=== PATIENT | male | born 2000 | race Caucasian/White ===

== ENCOUNTER 2023-06-20 23:26 | Inpatient (IN) | payer BC ==
[2023-06-20] MEDS ORDERED: Morphine 4 MG/ML VIAL ONE (23:55)
[2023-06-20] MEDS ORDERED: Mag-Al 1200 mg/1200 mg/30 ML UDCUP ONE (23:56)
[2023-06-20] MEDS ORDERED: Famotidine 20 MG TAB ONE (23:56)
[2023-06-20] MEDS ORDERED: Ondansetron PF 4 MG/2 ML Vial ONE (23:56)
[2023-06-20] MEDS ORDERED: Famotidine/PF 20 mg/2ml Vial ONE (23:56)
[2023-06-21 00:17] LABS: #Monocytes 0.8 thou/uL (0.11-0.59); #Neutrophils 12.3 thou/uL (1.40-6.50); %Basophils 0.2 % (0.0-1.0); %Eosinophils 0.3 % (0.0-10.0); %Lymphocytes 4.2 % (21.0-51.0); %Monocytes 6.1 % (0.0-10.0); %Neutrophils 88.8 % (42.0-75.0); Hemoglobin 18.4 g/dL (14.0-18.0); Mean Corpuscular HGB CONC 34.7 g/dL (32.0-36.0); Mean Corpuscular Volume 89.4 fl (78.0-98.0); Mean Platelet Volume 9.3 fL (7.4-10.4); Platelet Count 234 10x3/uL (130-400); RBC Distribution Width 11.8 % (11.5-14.5); Red Blood Cell (RBC) Count 5.93 mill/uL (4.70-6.10); White Blood Cell (WBC) Count 13.8 10x3/uL (4.8-10.8)
[2023-06-21 00:43] LABS: ALT (SGPT) 32 U/L (8-55); AST (SGOT) 24 U/L (5-34); Albumin 5.4 g/dL (3.5-5.0); Alkaline Phosphatase 48 U/L (40-110); Anion Gap 18 mmol/L (10-20); BUN (Urea Nitrogen) 14 mg/dL (8.9-20.6); Bilirubin, Total 0.7 mg/dL (0.2-1.2); Calc. Creatinine Clearance 0 mL/min (70-130); Calcium 10.4 mg/dL (7.8-10.44); Carbon Dioxide 27 mmol/L (22-29); Chloride 100 mmol/L (98-107); Estimated GFR 94; Globulin 3.4 g/dL (2.4-3.5); Glucose 105 mg/dL (70-105); Lipase 14 U/L (8-78); Potassium 4.6 mmol/L (3.5-5.1); Protein, Total 8.8 g/dL (6.0-8.3); Sodium 140 mmol/L (136-145)
[2023-06-21] MEDS ORDERED: Morphine 4 MG/ML VIAL ONE (01:31)
[2023-06-21] MEDS ORDERED: Metoclopramide HCl 10 MG/2 ML VIAL ONE (01:55)
[2023-06-21] MEDS ORDERED: Acetaminophen 500 MG TAB ONE (03:56)
[2023-06-21 04:47] LABS: Bacteria/HPF None Seen HPF (None Seen); Bilirubin Negative (Negative); Blood, Urine Negative (Negative); CAUTI Indications for Culture Fever or rigors; Clarity Clear (Clear); Glucose, Urine (Dipstick) Normal (Negative); Ketone, Urine 10 mg/dL (Negative); Leukocyte Negative Leu/uL (Negative); Nitrite Negative (Negative); Protein, Urine (Dipstick) Negative (Neg-Trace); RBC/HPF 0-3 HPF (0-3); Squamous Epithelial None Seen HPF (0-3); Urobilinogen Normal mg/dL (Less than 2); WBC/HPF 0-3 HPF (0-3)
[2023-06-21 04:54] LABS: Specific Gravity, Urine 1.049 (1.002-1.036)
[2023-06-21 04:55] LABS: Urine Culture Reflex No No
[2023-06-21] MEDS ORDERED: cefTRIAXone (ROCEPHIN) 1 GM VIAL ONE (05:04)
[2023-06-21] MEDS ORDERED: Sodium Chloride 0.9% 1,000 ML IV SCH ×3 (06:15→17:15)
[2023-06-21] MEDS ORDERED: Acetaminophen 325 MG TAB PO PRN (07:11)
[2023-06-21] MEDS ORDERED: Ondansetron PF 4 MG/2 ML Vial IVP PRN (07:11)
[2023-06-21] MEDS ORDERED: Ondansetron ODT 4 MG TAB PO PRN (07:11)
[2023-06-21] MEDS ORDERED: Vancomycin 1 GM/200 ML (FROZEN) BAG ONE ×2 (07:14→21:07)
[2023-06-21 07:34] VITALS: BMI 20.2
[2023-06-21 07:55] LABS: SARS-CoV-2 NAA Rapid Test Not Detected (NotDetected)
[2023-06-21] MEDS ORDERED: Piperacillin/Tazobactam 3.375 GM in Sodium Chloride 0.9% 100 ML IVPB SCH ×2 (08:00→12:00)
[2023-06-21] MEDS ORDERED: Piperacillin/Tazobactam 3.375 GM VIAL ONE ×2 (08:28→12:35)
[2023-06-21] MEDS ORDERED: Sodium Chloride 0.9% 100 ML ONE ×2 (08:28→12:27)
[2023-06-21] MEDS ORDERED: Iopamidol 370 76% 100 ML VIAL ONE (08:49)
[2023-06-21] MEDS: Sodium Chloride 0.9% 1,000 ML IV SCH ×3 (09:46→22:39)
[2023-06-21] MEDS ORDERED: Pantoprazole 40 MG VIAL ONE (09:48)
[2023-06-21] MEDS: Pantoprazole 40 MG VIAL IVP SCH (09:54)
[2023-06-21 10:47] LABS: Hemoglobin A1c 5.1 % (4.0-6.0)
[2023-06-21 11:46] LABS: HIV (1/2) Antibody/Antigen Non-Reactive (NonReactive); HIV 1/2 INDEX 0.11 S/CO (<1.00)
[2023-06-21 11:49] LABS: HBCM Index 0.07 S/CO (0-0.79); HBSAg Index 0.41 S/CO (0-0.99); Hep A IgM AB Non-Reactive S/CO (NonReactive); Hep A IgM S/CO 0.16 S/CO (0-0.79); Hep B Surf Ag Non-Reactive S/CO (NonReactive); Hep C IgG Ab Non-Reactive S/CO (NonReactive); Hep C Index 0.08 S/CO (0-0.79); Hepatitis B Core IgM Abs Non-Reactive S/CO (NonReactive); Thyroid Stimulating Hormone 0.4893 uIU/mL (0.35-4.94)
[2023-06-21] MEDS ORDERED: Piperacillin/Tazobactam 4.5 GM VIAL ONE (12:27)
[2023-06-21 14:56] LABS: Mean Corpuscular HGB CONC 34.5 g/dL (32.0-36.0); Mean Corpuscular Hemoglobin 31.2 pg (27.0-31.0); Mean Corpuscular Volume 90.4 fl (78.0-98.0); Mean Platelet Volume 9.7 fL (7.4-10.4); Platelet Count 163 10x3/uL (130-400); RBC Distribution Width 11.9 % (11.5-14.5); Red Blood Cell (RBC) Count 4.29 mill/uL (4.70-6.10); White Blood Cell (WBC) Count 5.4 10x3/uL (4.8-10.8)
[2023-06-21 14:57] LABS: Hemoglobin 13.4 g/dL (14.0-18.0)
[2023-06-21 14:58] LABS: Hematocrit 38.8 % (42.0-52.0)
[2023-06-21] MEDS ORDERED: Meropenem 1 GM in Sodium Chloride 0.9% 100 ML IVPB SCH (15:00)
[2023-06-21 15:06] LABS: INR-International Normal Ratio 1.3; Prothrombin Time 16.5 sec (12.0-14.7)
[2023-06-21 15:07] LABS: PTT 33.5 sec (22.9-36.1)
[2023-06-21 15:13] LABS: Actual Bicarbonate (HCO3v) 22.5 mEq/L (22-28); Calcium, Ionized (venous) 1.12 mmol/L (1.16-1.32); Chloride (VBG) 105 mmol/L (98-106); Hematocrit-VBG 43 % (42.0-52.0); Hemoglobin (Hb) 14.6 g/dL (13.2-17.3); Potassium (VBG) 3.74 mmol/L (3.70-5.30); Sodium 137.8 mmol/L (133-146); pH (venous) 7.346 (7.32-7.43)
[2023-06-21 15:27] LABS: Anion Gap 11 mmol/L (10-20); BUN (Urea Nitrogen) 10 mg/dL (8.9-20.6); Calc. Creatinine Clearance 116 mL/min (70-130); Calcium 8.2 mg/dL (7.8-10.44); Carbon Dioxide 24 mmol/L (22-29); Chloride 106 mmol/L (98-107); Estimated GFR 121; Glucose 103 mg/dL (70-105); Magnesium 1.6 mg/dL (1.6-2.6); Potassium 3.6 mmol/L (3.5-5.1); Sodium 137 mmol/L (136-145)
[2023-06-21] MEDS ORDERED: cefTRIAXone\\ROCEPHIN 1 GM in Sodium Chloride 0.9% 100 ML IVPB SCH (17:00)
[2023-06-21] MEDS ORDERED: Hydrocortisone Sod Succ/PF 100 mg/2 ml Vial ONE (17:13)
[2023-06-21] MEDS ORDERED: Hydrocortisone Sod Succ/PF 100 mg/2 ml Vial IVP SCH (17:15)
[2023-06-21] MEDS ORDERED: NOREPINEPHRINE 8 MG/250 ML-D5W 250 ML IVPB SCH (17:15)
[2023-06-21] MEDS ORDERED: Acetaminophen 325 MG TAB ONE (18:48)
[2023-06-21] MEDS ORDERED: NOREPINEPHRINE 8 MG/250 ML-D5W 250 ML ONE (18:54)
[2023-06-21] MEDS ORDERED: Simethicone Chewable 80 MG TAB PO PRN (20:34)
[2023-06-21] MEDS ORDERED: Metoclopramide HCl 10 MG/2 ML VIAL IVP SCH (20:45)
[2023-06-21] MEDS ORDERED: Electrolyte Replacement Protocol 1 EACH FS PRN (20:59)
[2023-06-21] MEDS ORDERED: Vancomycin 1 GM in Premix Bag 1 BAG IVPB SCH (21:00)
[2023-06-21] MEDS: Vancomycin 1 GM in Premix Bag 1 BAG IVPB SCH (21:13)
[2023-06-21] MEDS ORDERED: Magnesium 2 GM/50 ML(in water) 2 GM in Premix Bag 1 BAG IVPB SCH (21:15)
[2023-06-21] MEDS ORDERED: Magnesium 2 GM/50 ML BAG (IN WATER) ONE (21:32)
[2023-06-21] MEDS: Meropenem 1 GM in Sodium Chloride 0.9% 100 ML IVPB SCH (22:38)
[2023-06-21 23:16] LABS: Campy jejuni + coli by PCR Negative (Negative); STEC Shiga Toxin 1+2 Negative (Negative); Salmonella spp. by PCR Negative (Negative); Shigella spp + EIEC by PCR Negative (Negative)
[2023-06-22 04:13] LABS: #Monocytes 0.1 thou/uL (0.11-0.59); #Neutrophils 2.9 thou/uL (1.40-6.50); %Basophils 0.2 % (0.0-1.0); %Eosinophils 0.7 % (0.0-10.0); %Lymphocytes 26.2 % (21.0-51.0); %Monocytes 3.3 % (0.0-10.0); %Neutrophils 69.4 % (42.0-75.0); Hematocrit 36.4 % (42.0-52.0); Hemoglobin 12.4 g/dL (14.0-18.0); Mean Corpuscular HGB CONC 34.1 g/dL (32.0-36.0); Mean Corpuscular Hemoglobin 30.5 pg (27.0-31.0); Mean Corpuscular Volume 89.4 fl (78.0-98.0); Mean Platelet Volume 9.7 fL (7.4-10.4); Platelet Count 144 10x3/uL (130-400); RBC Distribution Width 11.7 % (11.5-14.5); Red Blood Cell (RBC) Count 4.07 mill/uL (4.70-6.10); White Blood Cell (WBC) Count 4.2 10x3/uL (4.8-10.8)
[2023-06-22 04:55] LABS: ALT (SGPT) 16 U/L (8-55); AST (SGOT) 14 U/L (5-34); Albumin 3.2 g/dL (3.5-5.0); Alkaline Phosphatase 25 U/L (40-110); Anion Gap 10 mmol/L (10-20); BUN (Urea Nitrogen) 6 mg/dL (8.9-20.6); Bilirubin, Total 0.3 mg/dL (0.2-1.2); Calc. Creatinine Clearance 149 mL/min (70-130); Calcium 8.2 mg/dL (7.8-10.44); Carbon Dioxide 23 mmol/L (22-29); Cardiac Risk 2.9 (Less than 4.5); Chloride 111 mmol/L (98-107); Cholesterol 85 mg/dl (< 200 Desired); Estimated GFR 131; Globulin 1.9 g/dL (2.4-3.5); Glucose 101 mg/dL (70-105); HDL Cholesterol 29 mg/dL (>60 Neg Risk); LDL Cholesterol, Calculated 47 mg/dL; Magnesium 1.8 mg/dL (1.6-2.6); Potassium 3.7 mmol/L (3.5-5.1); Protein, Total 5.1 g/dL (6.0-8.3); Sodium 140 mmol/L (136-145); Triglycerides 43 mg/dL (Less than 150)
[2023-06-22] MEDS: Meropenem 1 GM in Sodium Chloride 0.9% 100 ML IVPB SCH ×3 (05:37→23:30)
[2023-06-22] MEDS: Sodium Chloride 0.9% 1,000 ML IV SCH ×3 (05:38→20:10)
[2023-06-22] MEDS ORDERED: Hydrocortisone Sod Succ/PF 100 mg/2 ml Vial IVP SCH (06:30)
[2023-06-22] MEDS ORDERED: Magnesium 2 GM/50 ML(in water) 2 GM in Premix Bag 1 BAG IVPB SCH (08:00)
[2023-06-22] MEDS: Pantoprazole 40 MG VIAL IVP SCH (08:32)
[2023-06-22] MEDS: Vancomycin 1 GM in Premix Bag 1 BAG IVPB SCH ×2 (08:33→20:18)
[2023-06-22 19:35] LABS: Vancomycin, Trough 3.2 ug/mL
[2023-06-23] MEDS: Sodium Chloride 0.9% 1,000 ML IV SCH ×2 (03:58→08:37)
[2023-06-23] MEDS ORDERED: Vancomycin 1.5 GRAM/300 ML BAG 1.5 GM in Premix Bag 1 BAG IVPB SCH (04:00)
[2023-06-23 04:50] LABS: #Eosinphils 0.2 thou/uL (0.0-0.7); #Monocytes 0.7 thou/uL (0.11-0.59); #Neutrophils 2.8 thou/uL (1.40-6.50); %Basophils 0.2 % (0.0-1.0); %Eosinophils 3.7 % (0.0-10.0); %Lymphocytes 36.9 % (21.0-51.0); %Monocytes 12.5 % (0.0-10.0); %Neutrophils 46.5 % (42.0-75.0); Hematocrit 35.9 % (42.0-52.0); Hemoglobin 12.2 g/dL (14.0-18.0); Mean Corpuscular Hemoglobin 30.5 pg (27.0-31.0); Mean Corpuscular Volume 89.8 fl (78.0-98.0); Mean Platelet Volume 9.8 fL (7.4-10.4); Platelet Count 154 10x3/uL (130-400); RBC Distribution Width 11.8 % (11.5-14.5); White Blood Cell (WBC) Count 5.9 10x3/uL (4.8-10.8)
[2023-06-23 05:34] LABS: ALT (SGPT) 15 U/L (8-55); AST (SGOT) 15 U/L (5-34); Albumin 3.5 g/dL (3.5-5.0); Alkaline Phosphatase 25 U/L (40-110); Anion Gap 12 mmol/L (10-20); BUN (Urea Nitrogen) 6 mg/dL (8.9-20.6); Bilirubin, Total 0.2 mg/dL (0.2-1.2); Calc. Creatinine Clearance 138 mL/min (70-130); Calcium 8.5 mg/dL (7.8-10.44); Carbon Dioxide 25 mmol/L (22-29); Chloride 107 mmol/L (98-107); Estimated GFR 128; Glucose 93 mg/dL (70-105); Potassium 3.5 mmol/L (3.5-5.1); Protein, Total 5.5 g/dL (6.0-8.3); Sodium 140 mmol/L (136-145)
[2023-06-23] MEDS ORDERED: Magnesium 2 GM/50 ML(in water) 2 GM in Premix Bag 1 BAG IVPB SCH (06:30)
[2023-06-23] MEDS ORDERED: Potassium Chloride 20 MEQ in Premix Bag 1 BAG IVPB SCH (06:30)
[2023-06-23] MEDS ORDERED: Potassium Chloride 20 MEQ TAB PO SCH (06:45)
[2023-06-23] MEDS: Meropenem 1 GM in Sodium Chloride 0.9% 100 ML IVPB SCH (08:36)
[2023-06-23 12:45] VITALS: BP 109/60; TEMP 98.9
== END 2023-06-23 15:40 | disposition home or self-care (01) | DRG 871 ==
LOC: ERS 23:26 → ERHOLD 06-21 06:02 → OBSVTOIN 06-21 17:04 → IMCU/EMU 06-21 22:30 → 2NO 06-22 19:38
PROVIDERS: ADMIT Student in an Organized Health Care Education/Training Program; ATTEND Internal Medicine
PROC: 4A043R1 Measurement of Venous Saturation, Peripheral, Percutaneous Approach (ICD-10-PCS; principal; 2023-06-21)
PROC: 3E03329 Introduction of Other Anti-infective into Peripheral Vein, Percutaneous Approach (ICD-10-PCS; 2023-06-21)
PROC: 3E033XZ Introduction of Vasopressor into Peripheral Vein, Percutaneous Approach (ICD-10-PCS; 2023-06-21)
DX: A41.9 Sepsis, unspecified organism (principal); R65.21 Severe sepsis with septic shock; K52.9 Noninfective gastroenteritis and colitis, unspecified; I95.9 Hypotension, unspecified; E86.1 Hypovolemia; Z79.899 Other long term (current) drug therapy; Z20.822 Contact with and (suspected) exposure to COVID-19
CPT/HCPCS: 36415; 74018; 74177; 80053; 80061; 80074; 80202; 81001; 82024; 82088; 82533; 82805; 83036; 83605; 83630; 83690; 83735; 84244; 84443; 85025; 85610; 85730; 86140; 86850; 86900; 86901; 87040; 87086; 87177; 87324; 87389; 87449; 87505; 93005; 93010; 93306; C9113; J0696; J1650; J1720; J2185; J2270; J2405; J2543; J2765; J3370; J3370-JW; J3475; J3490; J7050; Q9967; S0028